=== PATIENT | male | born 1990 | race Caucasian/White ===

== ENCOUNTER 2016-06-20 14:11 | Emergency (ER) | payer MEDICAID ==
[~2016-06-20] VITALS: Ht 172.7 cm; Wt 109.8 kg
[2016-06-20 14:29] VITALS: BP 144/88
--- NOTE | 2016-06-20 14:48 | NUR ---
Patient ambulated to bed 5 with family. RN evaluating patient at bedside.
--- NOTE | 2016-06-20 14:53 | NUR ---
26/M TO ED WITH C/O RASH TO BILAT ARMS AND LEGS AND RIGHT HIP STARTING LAST NIGHT. PT DENIES PAIN. REDNESS NOTED. LUNGS CLEAR BILAT. HR EVEN AND REGULAR. AAOX4. VSS. NO SIGNS OF DISTRESS.
--- NOTE | 2016-06-20 15:00 | NUR ---
Dr. Kelly evaluating patient at bedside.
[2016-06-20] MEDS ORDERED: DEXAMETHASONE 4 MG/ML VIAL PO ONE (15:15)
[2016-06-20 16:10] VITALS: BP 144/88
--- NOTE | 2016-06-20 16:10 | NUR ---
Patient discharged with v/s stable. Written and verbal after care instructions given and explained. Patient alert, oriented and verbalized understanding of instructions. Ambulatory with steady gait. All questions addressed prior to discharge. ID band removed. Patient advised to follow up with PMD. Rx of BENADRYL, HYDROCORTISONE, AND PREDNISONE given. Patient educated on indication of medication including possible reaction and side effects. Opportunity to ask questions provided and answered.
== END 2016-06-20 16:10 | disposition home or self-care (01) ==
LOC: MED 14:11
DX: L50.9 Urticaria, unspecified (principal); S40.862A Insect bite (nonvenomous) of left upper arm, initial encounter; S40.861A Insect bite (nonvenomous) of right upper arm, initial encounter; S30.860A Insect bite (nonvenomous) of lower back and pelvis, initial encounter; S80.862A Insect bite (nonvenomous), left lower leg, initial encounter; S80.861A Insect bite (nonvenomous), right lower leg, initial encounter; W57.XXXA Bitten or stung by nonvenomous insect and other nonvenomous arthropods, initial encounter; Y93.84 Activity, sleeping; Y92.098 Other place in other non-institutional residence as the place of occurrence of the external cause
CPT/HCPCS: 99283; J1100; Q0163